=== PATIENT | female | born 1960 | race Caucasian/White ===

== ENCOUNTER 2017-04-02 20:05 | Emergency (ER) | payer MEDICAID ==
[2017-04-03 01:16] LABS: URINE BLOOD (Dip) POC Trace-lysed (NEGATIVE); URINE GLUCOSE (Dip) POC Negative (NEGATIVE); URINE KETONES (Dip) POC Negative (NEGATIVE); URINE LEUKOCYTE EST (Dip) POC 1+ (NEGATIVE); URINE NITRITE (Dip) POC Negative (NEGATIVE); URINE TOTAL PROTEIN POC Negative (NEGATIVE)
[2017-04-03 01:16] LABS: URINE PH (Dip) POC 5.5 (5.0-8.5)
[2017-04-03 01:17] LABS: URINE PH (Dip) POC 5.5 (5.0-8.5)
[2017-04-03 01:17] LABS: URINE BLOOD (Dip) POC Trace-lysed (NEGATIVE); URINE GLUCOSE (Dip) POC Negative (NEGATIVE); URINE KETONES (Dip) POC Negative (NEGATIVE); URINE LEUKOCYTE EST (Dip) POC 1+ (NEGATIVE); URINE NITRITE (Dip) POC Negative (NEGATIVE); URINE TOTAL PROTEIN POC Negative (NEGATIVE)
[2017-04-03 02:15] LABS: ADD MAN DIFF? NO
[2017-04-03 02:18] LABS: BASOPHILS % 0.4 % (0.0-2.0); EOSINOPHILS # 0.1 10^3/ul (0.0-0.5); EOSINOPHILS % 1.9 % (0.0-7.0); HEMATOCRIT 34.7 % (37.0-47.0); HEMOGLOBIN 11.9 g/dl (12.0-16.0); LYMPHOCYTES # 2.5 10^3/ul (0.8-2.9); LYMPHOCYTES % 46.2 % (15.0-51.0); MEAN CORPUSCULAR HEMOGLOBIN 31.9 pg (29.0-33.0); MEAN CORPUSCULAR HGB CONC 34.3 g/dl (32.0-37.0); MEAN PLATELET VOLUME 8.4 fl (7.4-10.4); MONOCYTE # 0.5 10^3/ul (0.3-0.9); MONOCYTES % 9.3 % (0.0-11.0); NEUTROPHIL # 2.3 10^3/ul (1.6-7.5); PLATELET COUNT 214 10^3/UL (140-415); RED BLOOD COUNT 3.73 10^6/ul (4.20-5.40); RED CELL DISTRIBUTION WIDTH 12.7 % (11.5-14.5)
[2017-04-03 02:18] LABS: WHITE BLOOD COUNT 5.4 10^3/ul (4.8-10.8)
[2017-04-03 02:38] LABS: ALANINE AMINOTRANSFERASE 34 IU/L (13-69); ALBUMIN 4.6 g/dl (3.3-4.9); ALBUMIN/GLOBULIN RATIO 1.27; ALKALINE PHOSPHATASE 81 IU/L (42-121); ANION GAP 16 (8-16); ASPARTATE AMINO TRANSFERASE 40 IU/L (15-46); BILIRUBIN,INDIRECT 0.1 mg/dl (0-1.1); BILIRUBIN,TOTAL 0.1 mg/dl (0.2-1.3); BLOOD UREA NITROGEN 12 mg/dl (7-20); CALCIUM 9.7 mg/dl (8.4-10.2); CARBON DIOXIDE 27 mmol/L (21-31); CHLORIDE 103 mmol/L (97-110); CREATININE 0.65 mg/dl (0.44-1.00); GLUCOSE 92 mg/dl (70-220); LIPASE 70 U/L (23-300); POTASSIUM 3.8 mmol/L (3.5-5.1); SODIUM 142 mmol/L (135-144); TOTAL PROTEIN 8.2 g/dl (6.1-8.1)
[2017-04-03] MEDS: HYDROCODONE/APAP (5/325) TAB PO (03:53)
[2017-04-03] MEDS: TRIMETHOPRIM/SULFAMETHOX (DS) TAB PO (03:53)
== END 2017-04-03 04:20 | disposition home or self-care (01) ==
LOC: E/R 20:05
DX: N39.0 Urinary tract infection, site not specified (principal); D64.9 Anemia, unspecified; I10 Essential (primary) hypertension
CPT/HCPCS: 36415; 80053; 81003; 83690; 85025; 99283

== ENCOUNTER 2017-04-22 09:49 | Emergency (ER) | payer MEDICAID ==
[2017-04-22 11:11] LABS: ADD UMIC YES; UR ASCORBIC ACID NEGATIVE (NEGATIVE); UR BACTERIA FEW /HPF (NONE SEEN); UR BILIRUBIN (Dip) NEGATIVE (NEGATIVE); UR BLOOD (Dip) 1+ mg/dL (NEGATIVE); UR CLARITY CLEAR (CLEAR); UR COLOR STRAW (YELLOW); UR GLUCOSE (Dip) NEGATIVE (NEGATIVE); UR KETONES (Dip) NEGATIVE (NEGATIVE); UR LEUKOCYTE ESTERASE (Dip) 1+ Leu/ul (NEGATIVE); UR NITRITE (Dip) NEGATIVE (NEGATIVE); UR RBC 0 /HPF (0-5); UR SPECIFIC GRAVITY (Dip) 1.008 (1.003-1.030); UR TOTAL PROTEIN (Dip) NEGATIVE (NEGATIVE); UR UROBILINOGEN (Dip) NEGATIVE (NEGATIVE); UR WBC 1 /HPF (0-5)
== END 2017-04-22 13:20 | disposition home or self-care (01) ==
LOC: FTE 09:49
DX: N39.0 Urinary tract infection, site not specified (principal); I10 Essential (primary) hypertension
CPT/HCPCS: 76830; 76856; 81001; 87086; 99284-25

== ENCOUNTER 2017-05-21 10:47 | Emergency (ER) | payer MEDICAID ==
[2017-05-21 11:09] LABS: ADD MAN DIFF? NO
[2017-05-21] MEDS: LORAZEPAM 2 MG INJ IV (11:09)
[2017-05-21] MEDS: ACETAMINOPHEN 325 MG TAB PO (11:09)
[2017-05-21 11:11] LABS: BASOPHILS % 0.4 % (0.0-2.0); EOSINOPHILS % 0.8 % (0.0-7.0); HEMATOCRIT 38.3 % (37.0-47.0); HEMOGLOBIN 13.6 g/dl (12.0-16.0); LYMPHOCYTES # 1.8 10^3/ul (0.8-2.9); MEAN CORPUSCULAR HEMOGLOBIN 32.7 pg (29.0-33.0); MEAN CORPUSCULAR HGB CONC 35.5 g/dl (32.0-37.0); MEAN CORPUSCULAR VOLUME 92.1 fl (82.0-101.0); MEAN PLATELET VOLUME 8.4 fl (7.4-10.4); MONOCYTE # 0.4 10^3/ul (0.3-0.9); NEUTROPHILS % 56.6 % (39.0-77.0); PLATELET COUNT 246 10^3/UL (140-415); RED BLOOD COUNT 4.16 10^6/ul (4.20-5.40); RED CELL DISTRIBUTION WIDTH 12.1 % (11.5-14.5)
[2017-05-21 11:11] LABS: WHITE BLOOD COUNT 5.3 10^3/ul (4.8-10.8)
[2017-05-21 11:38] LABS: ANION GAP 20 (8-16); BLOOD UREA NITROGEN 17 mg/dl (7-20); CALCIUM 9.9 mg/dl (8.4-10.2); CARBON DIOXIDE 23 mmol/L (21-31); CHLORIDE 107 mmol/L (97-110); CREATININE 0.68 mg/dl (0.44-1.00); GLUCOSE 93 mg/dl (70-220); POTASSIUM 4.2 mmol/L (3.5-5.1); SODIUM 146 mmol/L (135-144)
[2017-05-21 11:50] LABS: TROPONIN-I < 0.012 ng/ml (0.00-0.12)
== END 2017-05-21 12:56 | disposition home or self-care (01) ==
LOC: E/R 10:47
DX: F41.1 Generalized anxiety disorder (principal); I16.0 Hypertensive urgency; R40.2142 Coma scale, eyes open, spontaneous, at arrival to emergency department; R40.2252 Coma scale, best verbal response, oriented, at arrival to emergency department; R40.2362 Coma scale, best motor response, obeys commands, at arrival to emergency department; R07.9 Chest pain, unspecified
CPT/HCPCS: 36415; 70450; 71045; 80048; 84484; 85025; 96374; 99285-25

== ENCOUNTER 2017-10-10 17:38 | Emergency (ER) | payer MEDICAID ==
[2017-10-10] MEDS: KETOROLAC 30 MG INJ IM (19:08)
[2017-10-10 19:12] LABS: URINE BLOOD (Dip) POC Trace-lysed (NEGATIVE); URINE GLUCOSE (Dip) POC Negative (NEGATIVE); URINE KETONES (Dip) POC Negative (NEGATIVE); URINE LEUKOCYTE EST (Dip) POC 2+ (NEGATIVE); URINE NITRITE (Dip) POC Negative (NEGATIVE); URINE TOTAL PROTEIN POC Negative (NEGATIVE)
[2017-10-10 19:12] LABS: URINE PH (Dip) POC 5.5 (5.0-8.5)
== END 2017-10-10 19:57 | disposition home or self-care (01) ==
LOC: FTE 17:38
DX: S99.921A Unspecified injury of right foot, initial encounter (principal); I10 Essential (primary) hypertension; N39.0 Urinary tract infection, site not specified; W22.8XXA Striking against or struck by other objects, initial encounter; Y92.9 Unspecified place or not applicable
CPT/HCPCS: 73590; 81003; 96372; 99284-25

== ENCOUNTER 2017-10-20 13:51 | Emergency (ER) | payer MEDICAID ==
[2017-10-20] MEDS: METHYLPREDNISOLONE 125 MG INJ IM (14:57)
[2017-10-20] MEDS: CEFTRIAXONE 1 GM INJ IM (14:57)
== END 2017-10-20 16:41 | disposition home or self-care (01) ==
LOC: FTE 13:51
DX: S89.91XA Unspecified injury of right lower leg, initial encounter (principal); I10 Essential (primary) hypertension; W22.8XXA Striking against or struck by other objects, initial encounter; Y92.9 Unspecified place or not applicable
CPT/HCPCS: 73590; 73610-RT; 73630; 93971; 96372; 99285-25

== ENCOUNTER 2018-07-02 18:04 | Emergency (ER) | payer MEDICAID ==
[2018-07-02] MEDS ORDERED: KETOROLAC 30 MG INJ IM (19:08)
[2018-07-02] MEDS: IBUPROFEN 800 MG TAB PO (19:37)
[2018-07-02] MEDS ORDERED: DEXAMETHASONE 1 MG TAB PO (20:00)
[2018-07-02] MEDS: DEXAMETHASONE 4 MG TAB PO (20:04)
== END 2018-07-02 20:45 | disposition home or self-care (01) ==
LOC: E/R 18:04
DX: R05 Cough (principal); R07.9 Chest pain, unspecified
CPT/HCPCS: 71046; 93005; 99284-25